=== PATIENT | female | born 1980 | race American Indian/Alaskan Native ===

== ENCOUNTER 2018-02-10 12:29 | Outpatient (CLI) | payer OTHER ==
[2018-02-10 14:11] LABS: Hematocrit 34.5 % (30.3-42.9); Hemoglobin 11.6 gm/dl (10.1-14.3); Mean Corpuscular HGB Conc 34 % (30-34); Mean Corpuscular Hemoglobin 31 pg (28-32); Mean Corpuscular Volume 92 fl (79-97); Platelet Count 224 K/mm3 (140-440); Red Blood Count 3.77 M/mm3 (3.65-5.03)
[2018-02-10 14:43] LABS: Alanine Aminotransferase 20 units/L (7-56); Uric Acid 4.8 mg/dL (3.5-7.6)
[2018-02-10 14:49] LABS: Bacteria,Urine 3+ /HPF (Negative)
[2018-02-10 14:55] LABS: Color,Urine Straw (Yellow)
[2018-02-10 14:56] LABS: Bilirubin,Urine Negative (Negative); Blood,Urine Negative (Negative); Protein,Urine <15 mg/dL mg/dL (Negative)
[2018-02-10 15:08] VITALS: BP 132/70
[2018-02-10] MEDS ORDERED: LACTATED RINGERS 500 ML IV ONE (15:43)
== END 2018-02-10 16:00 | disposition home or self-care (01) ==
LOC: TRG 12:29 → EDBD 12:29 → TRG 12:31
PROVIDERS: ATTEND Obstetrics & Gynecology
DX: O47.03 False labor before 37 completed weeks of gestation, third trimester (principal); Z3A.37 37 weeks gestation of pregnancy
CPT/HCPCS: 36415; 59025; 81001; 82565; 83615; 84450; 84460; 84550; 85027